=== PATIENT | male | born 1995 | race Caucasian/White ===

== ENCOUNTER 2019-08-09 04:29 | Emergency (ER) | payer OTHER ==
[~2019-08-09] VITALS: Ht 182.9 cm; Wt 77.1 kg
[2019-08-09 05:27] LABS: BASOPHILS 0.5 % (0.0-2.0); EOSINOPHILS 1.8 % (0.0-3.0); HEMATOCRIT 44.7 % (42.0-52.0); HEMOGLOBIN 15.2 gm/dL (14.0-18.0); LYMPHOCYTES 17.7 % (24.0-44.0); MCH 31.9 pg (26.0-34.0); MCV 93.9 fL (80.0-100.0); MONOCYTES 2.6 % (1.0-8.0); PLATELET COUNT 193 thou/uL (150-400); POLYS 77.4 % (36.0-66.0); RBC 4.75 mil/uL (4.50-6.00); RDW 12.4 % (10.5-14.5); WBC 6.4 thou/uL (4.0-11.0)
[2019-08-09 05:31] LABS: ANION GAP 6 mmol/L (7-16); BUN 14 mg/dL (7-18); CALCIUM 8.2 mg/dL (8.5-10.1); CHLORIDE 103 mmol/L (98-107); CO2 29 mmol/L (21-32); CREATININE 1.1 mg/dL (0.7-1.3); GLUCOSE 123 mg/dL (74-106); POTASSIUM 3.6 mmol/L (3.5-5.1); SODIUM 138 mmol/L (136-145)
[2019-08-09 05:37] LABS: ALBUMIN 4.1 g/dL (3.4-5.0); SGOT 24 U/L (15-37); SGPT 27 U/L (30-65); TOTAL BILIRUBIN 0.4 mg/dL (0.2-1.0); TOTAL PROTEIN 7.5 g/dL (6.4-8.2)
[2019-08-09 05:43] LABS: DIRECT BILIRUBIN < 0.1 mg/dL (<0.1-0.2)
[2019-08-09 06:14] LABS: URINE BILIRUBIN NEGATIVE (Negative); URINE BLOOD NEGATIVE (Negative); URINE CLARITY CLOUDY; URINE COLOR YELLOW; URINE GLUCOSE-RANDOM* 1+ (Negative); URINE KETONES NEGATIVE (Negative); URINE LEUKOCYTES-REFLEX NEGATIVE (Negative); URINE NITRITE-REFLEX NEGATIVE (Negative); URINE PROTEIN (DIPSTICK) NEGATIVE (Negative); URINE UROBILINOGEN 0.2 E.U./dl (0.2-1.0)
[2019-08-09 06:20] LABS: SSA (PROTEIN CONFIRMATORY) NEGATIVE (Negative)
[2019-08-09 06:24] LABS: AMP/METHAMP Negative (Negative); BARBITURATES Negative (Negative); BENZODIAZEPINES Negative (Negative); COCAINE Negative (Negative); METHADONE Negative (Negative); OPIATES Negative (Negative); PCP Negative (Negative)
[2019-08-09] MEDS ORDERED: ZOFRAN ODT4 MG PO (06:47)
[2019-08-09 06:55] VITALS: BP 121/53
== END 2019-08-09 07:03 | disposition home or self-care (01) ==
LOC: ER 04:29
PROVIDERS: Emergency Medicine
DX: F10.121 Alcohol abuse with intoxication delirium (principal); E86.0 Dehydration; R41.82 Altered mental status, unspecified; E87.2 Acidosis; R11.2 Nausea with vomiting, unspecified; Z91.010 Allergy to peanuts; Y90.9 Presence of alcohol in blood, level not specified